=== PATIENT | female | born 1960 | race Caucasian/White ===

== ENCOUNTER 2018-12-31 20:16 | Emergency (ER) | payer OTHER, SELFPAY ==
[2018-12-31 20:19] VITALS: BP 118/75; PULSE 59; RESP 17; TEMP 36.5; O2SAT 100; BMI 18.2
--- NOTE | 2018-12-31 21:22 | ED.UPPEXIN ---
HPI - Extremity Injury (Upper) General Chief Complaint: Extremity Injury, Upper Stated Complaint: Left hand swelling Time Seen by Provider: 12/31/18 21:22 Source: patient Mode of arrival: ambulatory Limitations: no limitations History of Present Illness HPI narrative: 58-year-old female here for evaluation of redness and swelling and pain to her left hand. Patient states that yesterday she was out gardening when she hit her hand on a plant. She states that it did have small little spikes on the hand. She did not think much of it at that time but since that time she has had increase in swelling and pain. She is able to move her wrist. No fevers. No breaks in the skin. Related Data Previous Rx's Medication Instructions Recorded doxycycline hyclate 100 mg PO BID 10 Days #20 cap 12/31/18 Allergies Allergy/AdvReac Type Severity Reaction Status Date / Time No Known Drug Allergies Allergy Verified 12/31/18 21:57 Review of Systems Constitutional Denies fever(s) Cardiovascular Denies chest pain and Denies dyspnea Respiratory Denies dyspnea Gastrointestinal Gastrointestinal: Denies abdominal pain Musculoskeletal Denies myalgias and Denies arthralgias Integumentary/Breasts Comments: Redness and swelling to the left hand Neurologic Denies behavioral changes Psychiatric Denies behavioral changes Hematologic/Lymphatic Denies easy bleeding and Denies easy bruising [facility] Medical History (Updated 01/01/19 @ 00:46 by Jersey Cha DO) Patient denies medical problems (Acute) Social History Smoking Status: Never smoker Social History Smoking Status: Never smoker Exam Initial Vital Signs Initial Vital Signs: Vital Signs Temperature 97.7 F 12/31/18 20:19 Pulse Rate 59 L 12/31/18 20:19 Respiratory Rate 17 12/31/18 20:19 Blood Pressure 118/75 12/31/18 20:19 Pulse Oximetry 100 12/31/18 20:19 Const General: cooperative, comfortable, well developed, well groomed and No acute distress Orientation: alert, awake and oriented x3 HENMT Head: normal to inspection and normocephalic Skin Other: Redness and swelling circumferentially however mostly on the dorsum of the left hand extending just proximal to the wrist. No breaks in the skin. No blisters. Neuro Sensory Exam: no sensory deficits noted Extrem Other: Full range of motion of the left wrist and the fingers of left hand. Psych Appearance: grossly normal and well kempt Scores GCS [place] coma scale eye opening: Spontaneous [place] coma scale verbal response: Orientated [place] coma scale motor response: Obey commands [place] coma scale total score: 15 Course Orders Ordered: Discontinued Medications Doxycycline Hyclate (Vibramycin) 100 mg PO NOW ONE Stop: 12/31/18 21:49 Last Admin: 12/31/18 21:56 Dose: 100 mg Vital Signs - 8 hr 12/31/18 20:19 12/31/18 22:14 Temperature 97.7 F 98.8 F Pulse Rate 59 L 62 Respiratory Rate 17 15 Blood Pressure 118/75 Blood Pressure [Right Arm] 112/72 Pulse Oximetry 100 100 MDM - Extremity Injury (Upper) MDM Narrative Medical decision making narrative: Patient with history and physical exam consistent with cellulitis the left hand. Low suspicion for septic joint. She is afebrile. Low suspicion for fractures. Will hold on x-rays for now. Patient was given a dose of doxycycline here in the emergency department and a prescription for this medication. She was informed that if the symptoms worsen or she starts to have wrist pain of the redness extends upper arm that she should return to the emergency department for further evaluation. Patient expressed understanding and agreement this plan. Discharge Plan Departure Patient Disposition: Home Clinical Impression: Cellulitis Qualifiers: Site of cellulitis: extremity Site of cellulitis of extremity: upper extremity Laterality: left Qualified Code(s): L03.114 - Cellulitis of left upper limb Discharge Date/Time: 12/31/18 22:20 Interventions: ED Discharge Assessment Last Done: 12/31/18 22:20 Instructions: DI for Cellulitis -- Adult Activity Restrictions/Additional Instructions: You can take the remainder of your antibiotics after you fill them when you return home. Contact your primary doctor for a follow-up. If the redness worsens or you cannot take the antibiotics please return to the emergency department for further evaluation. Prescriptions: New doxycycline hyclate 100 mg capsule 100 mg PO BID 10 Days Qty: 20 RF: 0
[2018-12-31] MEDS: DOXYCYCLINE HYCLATE 100 MG TABLET PO (21:56)
[2018-12-31 22:14] VITALS: BP 112/72; PULSE 62; RESP 15; TEMP 37.1; O2SAT 100
== END 2018-12-31 22:20 | disposition home or self-care (01) ==
PROVIDERS: Emergency Provider Emergency Medicine
DX: L03.114 Cellulitis of left upper limb (principal); Y93.H2 Activity, gardening and landscaping
CPT/HCPCS: 99282; 99283

== ENCOUNTER → 2022-11-11 11:43 | Outpatient (CLI) | payer OTHER, MEDICAID, SELFPAY ==
--- NOTE | 2022-11-11 11:47 | DI.RAD.S_ITS ---
Bone Density Report Name: AYAAN MATOS Age: 62 Sex: Female Ethnicity: White Date of : 1960 Indication: Hormone therapy, screening for osteoporosis; Referring Provider: MONSERRAT HILL Study: Bone densitometry was performed. Exam Date: November 11, 2022 Accession number: [id number] Bone Density: Region BMD T-score Z-score Classification AP Spine(L1-L4) 0.720 -3.0 -1.3 Osteoporosis Femoral Neck (Left) 0.653 -1.8 -0.3 Osteopenia Total Hip (Left) 0.761 -1.5 -0.4 Osteopenia Femoral Neck (Right) 0.690 -1.4 0.0 Osteopenia Total Hip (Right) 0.750 -1.6 -0.4 Osteopenia Total Hip Mean 0.755 -1.6 -0.4 Osteopenia World Health Organization criteria for BMD impression classify patients as: Normal (T-score at or above -1.0), Osteopenia (T-score between -1.0 and -2.5), or Osteoporosis (T-score at or below -2.5). 10-year Fracture Risk: FRAX not reported because: Some T-score for Spine Total or Hip Total or Femoral Neck at or below -2.5 Impression: The patient has osteoporosis, based on the Total Spine T-score. Discussion: INCREASED RISK OF FRACTURE. BONE DENSITY IS UNDESIRABLY LOW AT ONE OR MORE SKELETAL SITES, CONSISTENT WITH POSTMENOPAUSAL OSTEOPOROSIS. This patient's lowest T-score meets the World Health Organization's (WHO) criteria for osteoporosis at one or more sites (T-score -2.5 or below). In untreated patients, the risk of osteoporotic fracture increases approximately two-fold for each 1.0 SD decrease in T-score. Low bone density is not the only risk factor for fracture; also consider factors such as patient's age, frailty or poor health, risk of falling, risk of injury, previous osteoporotic fracture, family history of osteoporosis, cigarette smoking, low body weight, etc. Not everyone with low bone mineral density has osteoporosis; osteomalacia and other metabolic bone disorders should also be considered. Patients who have osteoporosis should be evaluated for specific diseases and conditions (secondary causes) that may cause or contribute to bone loss. The [place] [employer]ocrinologists (AACE) and National Osteoporosis Foundation (NOF) recommend pharmacologic intervention for all postmenopausal women whose T-score is in this range. The patient should follow a healthful lifestyle (good nutrition with adequate calcium and vitamin D, and appropriate weight-bearing exercise). Follow-Up: Consider a repeat BMD and Vertebral Fracture Assessment (VFA) exam in 2 years or sooner if medically necessary, to reassess this patient's status. Reported by: TERE MOY M.D. on 11/11/2022 12:35:00 PM.
--- NOTE | 2022-11-11 11:47 | DI.MG.S_ITS ---
BILATERAL DIGITAL SCREENING MAMMOGRAM 3D/2D WITH CAD: 11/11/2022 CLINICAL: Routine screening. Comparison mammogram 09/05/2019. Both breasts are extremely dense, which lowers the sensitivity of mammography (category d />75% glandular tissue). Current study was also evaluated with a Computer Aided Detection (CAD) system. No significant masses, calcifications, or other findings are seen in either breast. IMPRESSION: NEGATIVE There is no mammographic evidence of malignancy. A 1 year screening mammogram is recommended. Based on the Tyrer Cuzick model (a risk assessment model) the patient's lifetime risk is 18.9% and her 10 year risk is 8.5%. According to the ACR, ACS, and NCCN guidelines, an annual breast MRI exam along with mammogram is recommended if the patient's lifetime risk is 20% or greater. This exam was interpreted at Station ID: [id number]. NOTE: For mammograms, a report in lay terms will be sent to the patient. Approximately 15% of breast malignancies will not be visualized mammographically. In the management of a palpable breast mass, a negative mammogram must not discourage biopsy of a clinically suspicious lesion. Electronically Signed By: Loco Camara M.D. slc/:11/11/2022 17:01:58 letter sent: Normal Exam ACR BI-RADS Category 1: Negative [id number]
== END ==
PROVIDERS: PCP Physician Assistant; Referring Provider Physician Assistant; Visit Provider Physician Assistant
DX: Z12.31 Encounter for screening mammogram for malignant neoplasm of breast (principal); Z78.9 Other specified health status; Z79.890 Hormone replacement therapy; M85.88 Other specified disorders of bone density and structure, other site
CPT/HCPCS: 77063; 77067; 77080

== ENCOUNTER → 2022-12-28 08:58 | Outpatient (CLI) | payer OTHER, MEDICAID, SELFPAY ==
[2022-12-28 20:10] LABS: Alanine Aminotransferase 20 IU/L (<35); Albumin Globulin Ratio 1.5 (1.0-2.8); Alkaline Phosphatase 38 U/L (38-126); Aspartate Aminotransferase 29 IU/L (14-36); BUN Creatinine Ratio 24.7 (6-22); Bilirubin Total 0.5 mg/dL (0.2-1.3); Blood Urea Nitrogen 19 mg/dL (7-17); Calcium 8.9 mg/dL (8.4-10.2); Carbon Dioxide 30 mmol/L (22-32); Chloride 103 mmol/L (98-107); Cholesterol 182 mg/dL (140-199); Estimated Glomerular Filt Rate > 60 mL/min (>60); Globulin 2.7 g/dL (1.7-4.1); Glucose 101 mg/dL (80-110); HDL Cholesterol 83 mg/dL (40-60); HEMOLYSIS < 15 (0-50); LDL Cholesterol Calculated 89 mg/dL (<100); Potassium 4.4 mmol/L (3.4-5.1); Sodium 137 mmol/L (137-145); Total Protein 6.7 g/dL (6.3-8.2); Triglycerides 51 mg/dL (35-150)
[2022-12-28 20:27] LABS: Prolactin 8.8 ng/mL (3.0-18.6)
[2022-12-28 20:43] LABS: Prostate Specific Antigen Scrn < 0.064 ng/mL
[2023-01-01 16:17] LABS: Estrogen 50 pg/mL (40-244)
[2023-01-02 17:59] LABS: Testosterone Free 0.11 ng/dL (0.10-0.85)
== END ==
PROVIDERS: PCP Physician Assistant; Visit Provider Physician Assistant
DX: Z78.9 Other specified health status (principal); Z87.890 Personal history of sex reassignment; Z79.890 Hormone replacement therapy
CPT/HCPCS: 80053; 80061; 82672; 84146; 84402; 84403; G0103

== ENCOUNTER → 2023-06-15 10:47 | Outpatient (CLI) | payer OTHER, MEDICAID, SELFPAY ==
[2023-06-24 14:45] LABS: Estrogen 1708 pg/mL (40-244)
[2023-06-29 06:27] LABS: Percent Free Testosterone 0.73 % (0.50-2.80); Testosterone Free 0.02 ng/dL (0.10-0.85); Testosterone Total 3.2 ng/dL (7.0-40.0)
== END ==
PROVIDERS: PCP Family Medicine; Visit Provider Family Medicine
DX: Z79.818 Long term (current) use of other agents affecting estrogen receptors and estrogen levels (principal); Z79.890 Hormone replacement therapy; Z78.9 Other specified health status
CPT/HCPCS: 82672; 84402; 84403

== ENCOUNTER → 2023-09-01 13:22 | Outpatient (CLI) | payer OTHER, MEDICAID, SELFPAY ==
[2023-09-01 20:11] LABS: Estradiol, Total 236.5 pg/mL
== END ==
PROVIDERS: PCP Family Medicine; Visit Provider Family Medicine
DX: Z79.890 Hormone replacement therapy (principal); Z79.818 Long term (current) use of other agents affecting estrogen receptors and estrogen levels
CPT/HCPCS: 82670

== ENCOUNTER → 2024-05-03 09:25 | Outpatient (CLI) | payer OTHER, MEDICAID, SELFPAY ==
[2024-05-03 20:37] LABS: Add Manual Diff / Slide Review NO; Basophils Absolute Auto 0 /uL (0-100); Basophils Percent Auto 1.2 % (0-2); Eosinophils Absolute Auto 100 /uL (0-450); Eosinophils Percent Auto 1.6 % (2-4); Hematocrit 36.3 % (36-46); Hemoglobin 12.2 g/dL (12.0-16.0); Lymphocytes Absolute Auto 800 /uL (1100-4500); Lymphocytes Percent Auto 23.9 % (25-40); Mean Corpuscular HGB Conc 33.6 % (30-36); Mean Corpuscular Hemoglobin 30.9 PG (26-34); Mean Corpuscular Volume 91.9 fL (80-100); Monocytes Absolute Auto 500 /uL (0-900); Monocytes Percent Auto 13.6 % (3-14); Neutrophils Absolute Auto 2000 /uL (1500-7000); Neutrophils Percent Auto 59.7 % (50-75); Platelet Count 204 X10^3/uL (150-400); Red Blood Cell Count 3.95 X10^6/uL (4.0-5.2); Red Cell Distribution Width 13.2 % (11.6-14.8); White Blood Cell Count 3.4 X10^3/uL (4.5-11.0)
[2024-05-03 20:44] LABS: Alanine Aminotransferase 22 IU/L (<35); Albumin Globulin Ratio 1.5 (1.0-2.8); Alkaline Phosphatase 44 U/L (38-126); Aspartate Aminotransferase 37 IU/L (14-36); BUN Creatinine Ratio 16.3 (6-22); Bilirubin Total 0.6 mg/dL (0.2-1.3); Blood Urea Nitrogen 14 mg/dL (7-17); Calcium 9.2 mg/dL (8.4-10.2); Carbon Dioxide 27 mmol/L (22-32); Chloride 104 mmol/L (98-107); Cholesterol 175 mg/dL (140-199); Estimated Glomerular Filt Rate > 60 mL/min (>60); Globulin 2.7 g/dL (1.7-4.1); Glucose 98 mg/dL (80-110); HDL Cholesterol 99 mg/dL (40-60); HEMOLYSIS < 15 (0-50); LDL Cholesterol Calculated 66 mg/dL (<100); Potassium 4.2 mmol/L (3.4-5.1); Sodium 136 mmol/L (137-145); Total Protein 6.7 g/dL (6.3-8.2); Triglycerides 49 mg/dL (35-150)
[2024-05-03 21:01] LABS: Vitamin D 25 Hydroxy (D3) 93.8 ng/mL (30.0-100.0)
[2024-05-03 21:16] LABS: Estradiol, Total 477.3 pg/mL; Thyroid Stimulating Hormone 1.51 uIU/mL (0.47-4.68)
[2024-05-03 21:22] LABS: Ferritin 19 ng/mL (11-264)
[2024-05-03 21:24] LABS: Prostate Specific Antigen Scrn < 0.064 ng/mL
[2024-05-10 13:12] LABS: Testosterone Free 0.12 ng/dL (0.10-0.85); Testosterone Total 8.2 ng/dL (7.0-40.0)
== END ==
PROVIDERS: PCP Family Medicine; Visit Provider Family Medicine
DX: M81.0 Age-related osteoporosis without current pathological fracture (principal); Z13.6 Encounter for screening for cardiovascular disorders; Z13.0 Encounter for screening for diseases of the blood and blood-forming organs and certain disorders involving the immune mechanism; Z12.39 Encounter for other screening for malignant neoplasm of breast; Z13.29 Encounter for screening for other suspected endocrine disorder; Z79.818 Long term (current) use of other agents affecting estrogen receptors and estrogen levels; Z78.9 Other specified health status; Z12.31 Encounter for screening mammogram for malignant neoplasm of breast
CPT/HCPCS: 80053; 80061; 82306; 82670; 82728; 84402; 84403; 84443; 85025; G0103

== ENCOUNTER → 2024-05-10 12:49 | Outpatient (CLI) | payer OTHER, MEDICAID, SELFPAY ==
--- NOTE | 2024-05-10 12:50 | DI.MG.S_ITS ---
BILATERAL DIGITAL SCREENING MAMMOGRAM 3D/2D WITH CAD: 05/10/2024 CLINICAL: Routine screening. Comparison is made to exams dated: 11/11/2022 mammogram - [facility] and 09/05/2019 mammogram - Outside facility. The breasts are extremely dense, which lowers the sensitivity of mammography (category d />75% glandular tissue). Current study was also evaluated with a Computer Aided Detection (CAD) system. No significant masses, calcifications, or other findings are seen in either breast. There has been no significant interval change. IMPRESSION: NEGATIVE There is no mammographic evidence of malignancy. A 1 year screening mammogram is recommended. Based on the Tyrer Cuzick model (a risk assessment model) the patient's lifetime risk is 18.2% and her 10 year risk is 8.5%. According to the ACR, ACS, and NCCN guidelines, an annual breast MRI exam along with mammogram is recommended if the patient's lifetime risk is 20% or greater. This exam was interpreted at Station ID: [id number]. NOTE: For mammograms, a report in lay terms will be sent to the patient. Approximately 15% of breast malignancies will not be visualized mammographically. In the management of a palpable breast mass, a negative mammogram must not discourage biopsy of a clinically suspicious lesion. Electronically Signed By: Lcoo cottrell/enid:05/10/2024 18:30:19 letter sent: Normal Exam ACR BI-RADS Category 1: Negative
--- NOTE | 2024-05-10 12:50 | DI.RAD.S_ITS ---
PROCEDURE: XR DEXA AXIAL SKELETON INDICATIONS: Osteoporosis COMPARISON: [facility], , XR DEXA AXIAL SKELETON, 11/11/2022, 12:15. FINDINGS: Lumbar Spine: Bone mineral density 0.733 g/cm2, T score -2.9 Left Hip: Bone mineral density 0.739 g/cm2, T score -1.7 Left Femoral Neck: Bone mineral density 0.662 g/cm2, T score -1.7 Right Hip: Bone mineral density 0.750 g/cm2, T score -1.6 Right Femoral Neck: Bone mineral density 0.690 g/cm2, T score -1.4 Fracture Risk Calculation (when applicable): Not applicable (T score greater or equal to -1.0 to: NORMAL) (T score from -1.1 to -2.4: OSTEOPENIA) (T score less than or equal to -2.5: OSTEOPOROSIS) IMPRESSION: 1. Osteoporosis of the lumbar spine. 2. Osteopenia of the hips and femoral necks. Follow-up guidelines as follows: Osteoporosis: Consider a repeat DEXA and Vertebral Fracture Assessment (VFA) exam in 2 years or sooner if medically necessary, to reassess this patient's status. Osteopenia: Consider a repeat DEXA in 2-3 years to reassess this patient's status, or if there is a new clinical indication. Normal: Consider a repeat DEXA in 5 years or sooner, or if there is a new clinical indication. All treatment decisions require clinical judgment and consideration of individual patient factors, including patient preferences, comorbidities, previous drug use, risk factors not captured in the FRAX model (e.g., frailty, falls, vitamin D deficiency, increased bone turnover, interval significant decline in bone density ) and possible under- or over-estimation of fracture risk by FRAX. In addition, the NOF Guide recommends that FDA-approved medical therapies be considered in postmenopausal women and men age >= 50 years with a: * Hip or vertebral (clinical or morphometric) fracture * T-score of <=-2.5 at the spine or hip * Ten-year fracture probability by FRAX of >= 3% for hip fracture or >=20% for major osteoporotic fracture. People with diagnosed cases of osteoporosis or at high risk for fracture should have regular bone mineral density tests. For patients eligible for Medicare, routine testing is allowed once every 2 years. The testing frequency can be increased to one year for patients who have rapidly progressing disease, those who are receiving or discontinuing medical therapy to restore bone mass, or have additional risk factors. Dictated by: Toby Orellana M.D. on 05/10/2024 at 16:36 Approved by: Toby Orellana M.D. on 05/10/2024 at 16:38
== END ==
PROVIDERS: PCP Family Medicine; Referring Provider Family Medicine; Visit Provider Family Medicine
DX: Z12.31 Encounter for screening mammogram for malignant neoplasm of breast (principal); M81.0 Age-related osteoporosis without current pathological fracture; R92.323 Mammographic fibroglandular density, bilateral breasts; Z78.0 Asymptomatic menopausal state
CPT/HCPCS: 77063; 77067; 77080

== ENCOUNTER → 2024-08-16 12:57 | Outpatient (CLI) | payer MEDICARE, SELFPAY | PROVIDERS: PCP Family Medicine; Visit Provider Physician Assistant | DX: J02.9 Acute pharyngitis, unspecified (principal); R21 Rash and other nonspecific skin eruption | CPT/HCPCS: 87070 ==

== ENCOUNTER → 2024-11-23 10:31 | Outpatient (CLI) | payer MEDICARE, MEDICAID, SELFPAY ==
[2024-11-23 20:27] LABS: Estradiol, Total 49.3 pg/mL
== END ==
PROVIDERS: PCP Family Medicine; Visit Provider Family Medicine
DX: Z13.89 Encounter for screening for other disorder (principal); Z79.818 Long term (current) use of other agents affecting estrogen receptors and estrogen levels; Z79.890 Hormone replacement therapy
CPT/HCPCS: 82670

== ENCOUNTER → 2025-04-16 10:13 | Outpatient (CLI) | payer MEDICARE, MEDICAID, SELFPAY ==
[2025-04-16 18:55] LABS: Add Manual Diff / Slide Review NO; Hematocrit 33.9 % (41-53); Hemoglobin 11.6 g/dL (13.5-17.5); Lymphocytes Absolute Auto 1200 /uL (1100-4500); Mean Corpuscular HGB Conc 34.1 % (30-36); Mean Corpuscular Hemoglobin 31.7 PG (26-34); Mean Corpuscular Volume 92.8 fL (80-100); Platelet Count 208 X10^3/uL (150-400)
[2025-04-16 19:15] LABS: Alanine Aminotransferase 18 IU/L (<50); Albumin 3.9 g/dL (3.5-5.0); Albumin Globulin Ratio 1.4 (1.0-2.8); Alkaline Phosphatase 49 U/L (38-126); Blood Urea Nitrogen 12 mg/dL (9-20); Calcium 9.2 mg/dL (8.4-10.2); Carbon Dioxide 27 mmol/L (22-32); Chloride 102 mmol/L (98-107); Cholesterol 170 mg/dL (140-199); Estimated Glomerular Filt Rate > 60 mL/min (>60); Globulin 2.7 g/dL (1.7-4.1); Glucose 95 mg/dL (70-99); HDL Cholesterol 92 mg/dL (40-60); HEMOLYSIS < 15 (0-50); Potassium 4.0 mmol/L (3.4-5.1); Sodium 135 mmol/L (137-145); Total Protein 6.6 g/dL (6.3-8.2); Triglycerides 110 mg/dL (35-150)
[2025-04-16 19:31] LABS: Vitamin D 25 Hydroxy (D3) 74.8 ng/mL (30.0-100.0)
[2025-04-16 19:47] LABS: Thyroid Stimulating Hormone 0.883 uIU/mL (0.47-4.68)
[2025-04-16 19:48] LABS: Estradiol, Total 141.5 pg/mL
== END ==
PROVIDERS: PCP Family Medicine; Visit Provider Family Medicine
DX: M81.0 Age-related osteoporosis without current pathological fracture (principal); Z13.29 Encounter for screening for other suspected endocrine disorder; Z12.5 Encounter for screening for malignant neoplasm of prostate; Z13.6 Encounter for screening for cardiovascular disorders; Z13.0 Encounter for screening for diseases of the blood and blood-forming organs and certain disorders involving the immune mechanism; Z79.890 Hormone replacement therapy
CPT/HCPCS: 80053; 80061; 82306; 82670; 84443; 85025; G0103

== ENCOUNTER → 2025-04-24 10:49 | Outpatient (CLI) | payer MEDICARE, MEDICAID, SELFPAY ==
[2025-04-24 18:56] LABS: HEMOLYSIS < 15 (0-50); Iron 148 ug/dL (49-181)
[2025-04-24 19:14] LABS: Percent Iron Saturation 47 % (20-50); Total Iron Binding Capacity 312 ug/dL (261-462); Transferrin 268 mg/dL (206-381)
[2025-04-24 19:33] LABS: Ferritin 28 ng/mL (18-464)
[2025-04-24 20:04] LABS: Folate > 20.0 ng/mL (2.76-20.0); Vitamin B12 711 pg/mL (239-931)
== END ==
PROVIDERS: PCP Family Medicine; Visit Provider Family Medicine
DX: D64.9 Anemia, unspecified (principal)
CPT/HCPCS: 82607; 82728; 82746; 83540; 83550

== ENCOUNTER → 2025-04-25 07:30 | Outpatient (CLI) | payer MEDICARE, MEDICAID, SELFPAY | PROVIDERS: PCP Family Medicine; Visit Provider Family Medicine | DX: Z12.11 Encounter for screening for malignant neoplasm of colon (principal); D64.9 Anemia, unspecified | CPT/HCPCS: 82274 ==

== ENCOUNTER → 2025-06-18 12:03 | Outpatient (CLI) | payer MEDICARE, MEDICAID, SELFPAY ==
[2025-06-18 19:25] LABS: Hematocrit 33.7 % (41-53); Hemoglobin 11.6 g/dL (13.5-17.5); Mean Corpuscular HGB Conc 34.4 % (30-36); Mean Corpuscular Hemoglobin 31.4 PG (26-34); Mean Corpuscular Volume 91.4 fL (80-100); Platelet Count 223 X10^3/uL (150-400)
[2025-06-18 19:53] LABS: Reticulocyte Count, Percent 0.5 % (0.9-2.6)
[2025-06-18 21:12] LABS: Atypical Lymphocytes Percent 3.0 %; Band Neutrophils Percent 1.0 % (3-7); Basophils Percent Manual 3.0 % (0-1); Eosinophils Percent Manual 2.0 % (2-4); Lymphocytes Percent Manual 10.0 % (25-45); Monocytes Percent Manual 14.0 % (2-11); Neutrophils Absolute Manual 3060 /uL (3000-5900); Segmented Neutrophils Percent 67.0 % (38-70); Total Cells Counted 100
[2025-06-18 21:13] LABS: RBC Morphology Normal Morphology
== END ==
PROVIDERS: PCP Family Medicine; Visit Provider Family Medicine
DX: D64.9 Anemia, unspecified (principal)
CPT/HCPCS: 83615; 85025; 85045